=== PATIENT | female | born 2000 | race Caucasian/White ===

== ENCOUNTER → 2025-02-08 11:13 | Outpatient (REF) | payer OTHER, SELFPAY | LOC: OHS 11:13 | PROVIDERS: ATTENDING PHYSICIAN Nurse Practitioner Family | DX: Z23 Encounter for immunization (principal) | CPT/HCPCS: 36415; 86480; 86706 ==

== ENCOUNTER → 2025-04-23 10:34 | Outpatient (REF) | payer OTHER, SELFPAY | LOC: OHS 10:34 | PROVIDERS: ATTENDING PHYSICIAN Nurse Practitioner Family | DX: Z23 Encounter for immunization (principal) | CPT/HCPCS: 36415; 86706 ==